=== PATIENT | male | born 1985 | race Caucasian/White ===

== ENCOUNTER 2018-05-28 22:48 | Emergency (ER) | payer OTHER ==
[~2018-05-28] VITALS: Ht 198.1 cm; Wt 138.8 kg
[~2018-05-28 22:48] MED LIST: METH500T PO; OXYC-143 PO
[2018-05-29] MEDS ORDERED: acetaminophen 325mg tablet PO ONE (01:40)
[2018-05-29] MEDS ORDERED: ketorolac trometh. 30mg/ml inj. IM ONE (03:05)
[2018-05-29 03:27] VITALS: BP 132/83
== END 2018-05-29 03:32 | disposition home or self-care (01) ==
LOC: ER 22:49
DX: S06.0X1A Concussion with loss of consciousness of 30 minutes or less, initial encounter (principal); G89.29 Other chronic pain; Z88.6 Allergy status to analgesic agent; Z88.1 Allergy status to other antibiotic agents; Y04.8XXA Assault by other bodily force, initial encounter; Y93.89 Activity, other specified; Y92.89 Other specified places as the place of occurrence of the external cause; Y99.8 Other external cause status
CPT/HCPCS: 70450; 96372; 99284; J1885